=== PATIENT | female | born 1940 | race Caucasian/White ===

== ENCOUNTER → 2017-01-26 | Outpatient (CLI) | payer MEDICARE, OTHER ==
--- NOTE | 2017-01-26 12:59 | PCVCIMAG ---
APPROVED REPORT Study performed: 01/26/2017 08:50:32 EXAM: Comprehensive 2D, Doppler, and color-flow Echocardiogram Patient Location: Echo lab BSA: 2.36 Other Information Technically limited study due to body habitus, inability to position patient. Risk Factors: Cardiac Risk Factors: SOB, HTN Indications Dyspnea Aortic Stenosis, Obesity 2D Dimensions LVEF(%): 65.81 (>50%) IVSd: 16.98 (7-11mm)LVOT Diam: 20.20 (18-24mm) LVDd: 41.50 mm PWd: 16.04 (7-11mm)Ascending Ao: 40.05 (22-36mm) LVDs: 26.63 (25-40mm) Left Atrium: 40.09 (27-40mm) Aortic Root: 36.35 mm LV Single Plane 4CH: 48.36 % LV Single Plane 2CH: 50.68 %Blackburn's LVEF: 49.52 % Biplane EF: 50.7 % Volumes Left Atrial Volume (Systole) Single Plane 4CH: 44.11 mLSingle Plane 2CH: 38.15 mL LA ESV Index: 18.00 mL/m2 Aortic Valve AoV Peak Beni.: 3.91 m/s AO Peak Gr.: 61.27 mmHgLVOT Max P.40 mmHg AO Mean Gr.: 34.31 mmHgLVOT Mean P.30 mmHg AO V2 Mean: 2.77 m/sLVOT Max V: 1.05 m/s AO V2 VTI: 109.67 cmLVOT Mean V: 0.72 m/s RAJANI (VTI): 0.83 [id number] V1 VTI: 28.28 cm RAJANI Vmax: 0.86 cm2 AI Vmax: 4.18 m/sSV (LVOT): 90.55 mL AI Kay: 2.25 m/s2 AI PHT: 537.92 ms Mitral Valve MV Peak Gr.: 9.61 mmHg MV Mean Gr.: 4.32 mmHgE/A Ratio: 0.9 MV Decel. Time: 405.12 ms MV E Max Beni.: 1.20 m/s MV A Beni.: 1.35 m/s MV Max Beni.: 1.55 m/s MV Mean Beni.: 0.96 m/s MV VTI: 458.99 mm MVA VTI: 197.28 mm2 MV PHT: 144.40 ms MVA (PHT): 1.52 cm2 IVRT: 51.90 ms Pulmonary Valve PV Peak Beni.: 1.07 m/sPV Peak Gr.: 4.56 mmHg Pulmonary Vein P Vein S: 0.31 m/sP Vein A: 0.33 m/s P Vein D: 0.44 m/sP Vein A Dur.: 162.6 msec P Vein S/D Ratio: 0.70 Tricuspid Valve TR Peak Beni.: 2.60 m/s TR Peak Gr.: 26.95 mmHg Left Ventricle The left ventricle is normal size. There is normal LV segmental wall motion. Moderate to severe concentric left ventricular hypertrophy. Left ventricular systolic function is normal. LVEF is 50-55%. Grade I - abnormal relaxation pattern. Right Ventricle The right ventricle is normal size. The right ventricular systolic function is normal. Atria The left atrium size is normal. The right atrium size is normal. Aortic Valve The aortic valve is moderately to severely calcified. Mild aortic regurgitation. There is moderate to severe valvular aortic stenosis. Calculated aortic valve area is 0.9 cm2 with maximum pressure gradient of 61 mmHg and mean pressure gradient of 34 mmHg. Mitral Valve Moderate-severely calcified leaflet appearance and mitral annular calcification. Mild mitral regurgitation. Mild mitral stenosis with MVA of 1.5 cm2 by PHT and mean gradient of 4.3 mmHg. Tricuspid Valve The tricuspid valve is normal in structure. Mild tricuspid regurgitation with PAP of 33 mmHg. Pulmonic Valve The pulmonary valve is normal in structure. There is no pulmonic valvular regurgitation. Great Vessels The aortic root is normal in size. IVC is normal in size and collapses with >50% inspiration Pericardium There is no pericardial effusion. <Conclusion> The left ventricle is normal size. Moderate to severe concentric left ventricular hypertrophy. LVEF is 50-55%. Grade I - abnormal relaxation pattern. The right ventricle is normal size. The left atrium size is normal. The aortic valve is moderately to severely calcified. There is moderate to severe valvular aortic stenosis. Calculated aortic valve area is 0.9 cm2 with maximum pressure gradient of 61 mmHg and mean pressure gradient of 34 mmHg. Mild aortic regurgitation. Moderate-severely calcified leaflet appearance and mitral annular calcification. Mild mitral regurgitation. Mild tricuspid regurgitation with PAP of 33 mmHg. There is no pericardial effusion.
== END | disposition home or self-care (01) ==
LOC: PCVCIMAG 08:59
PROVIDERS: ATTEND Internal Medicine Cardiovascular Disease
DX: I08.3 Combined rheumatic disorders of mitral, aortic and tricuspid valves (principal); I10 Essential (primary) hypertension; E78.00 Pure hypercholesterolemia, unspecified; E66.9 Obesity, unspecified; M19.90 Unspecified osteoarthritis, unspecified site; E03.9 Hypothyroidism, unspecified; Z90.49 Acquired absence of other specified parts of digestive tract; Z90.710 Acquired absence of both cervix and uterus; Z79.82 Long term (current) use of aspirin; Z79.899 Other long term (current) drug therapy; Z88.8 Allergy status to other drugs, medicaments and biological substances
CPT/HCPCS: 80061; 93005; 93306; G0463